=== PATIENT | female | born 1960 | race African-American/Black ===

== ENCOUNTER 2016-08-23 22:29 | Emergency (ER) | payer OTHER ==
[~2016-08-23] VITALS: Ht 177.8 cm; Wt 113.4 kg
--- NOTE | ~2016-08-23 | EKG ---
[address] [address] ELECTROCARDIOGRAM REPORT Name: ARNOLDO SUH Room #: DEP Shoaib#: [id number] Admission: 08/23/16 Attend Phys: Discharge: 08/24/16 Date of : 58 Report #: [id number] THIS REPORT FOR: //name// [facility] ED Test Date: 2016-08-23 Test Time: 23:21:43 Pat Name: ARNOLDO SUH Department: Room: Gender: F Log Rafter: golden : 1960 Requested By: Izaiah Encarnacion Order Number: [id number] MD: Brendan Baca Measurements Intervals [place] Rate: 83 P: 65 NC: 175 QRS: 35 QRSD: 107 T: 85 QT: 391 QTc: 460 Interpretive Statements Sinus rhythm Borderline T abnormalities, lateral leads Electronically Signed On 08-26-2016 15:54:16 CDT by Brendan Baca [email or web address] <ELECTRONICALLY SIGNED> By: Brendan Baca MD 08/26/16 1554 2321 2321 Brendan [email or web address] MD /RAJ
[~2016-08-23 22:29] MED LIST: ASPIR 8181 M1 PO; BRINTELLIX10 MG PO; CRESTOR10 MG PO; HYDROCHLOROTH12.5 M1 PO; IBUPROFEN 600600 M1 PO; NORCO 5-325 TA1 EACH PO; PHENERGAN 25 MG25 M1 PO; PROMS25 WY RECTAL; ULTRAM 50MG TAB50 MG PO; VISTARIL 25 MG25 M1 PO; XANAX 0.25 MG0.25 MG PO
[2016-08-23 23:43] LABS: HEMATOCRIT 39.7 % (37.0-47.0); HEMOGLOBIN 12.9 gm/dL (12.0-15.0); MCH 26.6 pg (26.0-34.0); MCHC 32.5 g/dL (28.0-37.0); MCV 81.8 fL (80.0-100.0); PLATELET COUNT 209 thou/uL (150-400); RBC 4.85 mil/uL (4.20-5.00); RDW 14.6 % (10.5-14.5); WBC 7.8 thou/uL (4.0-11.0)
[2016-08-23 23:44] LABS: MANUAL DIFF YES
[2016-08-23 23:50] LABS: ANION GAP 7 mmol/L (7-16); BUN 9 mg/dL (7-18); CALCIUM 8.8 mg/dL (8.5-10.1); CHLORIDE 108 mmol/L (98-107); CO2 27 mmol/L (21-32); CREATININE 0.9 mg/dL (0.6-1.0); GLUCOSE 124 mg/dL (74-106); POTASSIUM 3.8 mmol/L (3.5-5.1); SODIUM 142 mmol/L (136-145)
[2016-08-24 00:03] LABS: NT-PRO BRAIN NAT PEPTIDE 140 pg/mL (<300); TROPONIN-I < 0.04 ng/mL (<0.04-0.07)
[2016-08-24 00:27] LABS: ABSOLUTE NEUTROPHILS 3.4 thou/uL (1.4-8.2); ANISOCYTOSIS SLIGHT; TOTAL CELL COUNT 100
[2016-08-24] MEDS ORDERED: GUAIFEN-CODEIN120 ML PO (02:55)
[2016-08-24 03:36] VITALS: BP 161/78
== END 2016-08-24 03:38 | disposition home or self-care (01) ==
LOC: ER 22:29
PROVIDERS: Nurse Practitioner
DX: J06.9 Acute upper respiratory infection, unspecified (principal); I10 Essential (primary) hypertension; F41.9 Anxiety disorder, unspecified; G89.29 Other chronic pain; M79.604 Pain in right leg; Z86.73 Personal history of transient ischemic attack (TIA), and cerebral infarction without residual deficits; Z91.040 Latex allergy status